=== PATIENT | female | born 1950 | race Caucasian/White ===

== ENCOUNTER → 2017-11-26 | Outpatient (CLI) | payer MEDICARE ==
[~2017-11-26] MED LIST: ASPI-496 PO; ASPI325T17 PO; CYAN1TAB29 PO; DOCU-131 PO; HYDR12.58 PO; LEVO50TA PO; LOSA100T6 PO; LOVA40TA2 PO; SERT50TA5 PO; TRAZ150T62 PO
[2017-11-26 15:00] LABS: BASOPHILS # (AUTO) 0.03 x10^3/uL (0-0.1); BASOPHILS % (AUTO) 0 % (0-1); EOSINOPHILS # (AUTO) 0.03 x10^3/uL (0-0.4); EOSINOPHILS % (AUTO) 0 % (1-7); LYMPHOCYTES # (AUTO) 1.03 x10^3/uL (1-3.4); LYMPHOCYTES % (AUTO) 14 % (22-44); MD NO; MEAN CORPUSCULAR HEMOGLOBIN 30.4 pg (27.0-34.8); MEAN CORPUSCULAR HGB CONC 33.3 g/dL (32.4-35.8); MEAN CORPUSCULAR VOLUME 91.5 fL (80-100); MEAN PLATELET VOLUME 10.2 fL (7.4-10.4); MONOCYTES # (AUTO) 0.59 x10^3/uL (0.2-0.8); MONOCYTES % (AUTO) 8 % (2-9); NEUTROPHILS # (AUTO) 5.78 x10^3/uL (1.8-6.8); NEUTROPHILS % (AUTO) 78 % (42-75); PLATELET COUNT 195 x10^3/uL (130-400); RED BLOOD COUNT 4.46 x10^6/uL (3.82-5.3); RED CELL DISTRIBUTION WIDTH 13.4 % (9.6-15.2)
[2017-11-26 15:12] LABS: MICROSCOPIC AUTO
[2017-11-26 15:13] LABS: ALANINE AMINOTRANSFERASE 19 U/L (12-78); ALBUMIN 3.5 g/dL (3.4-5.0); ANION GAP 7 mmol/L (5-15); CALCIUM 8.8 mg/dL (8.5-10.1); CHLORIDE 103 mmol/L (98-107)
[2017-11-26 15:15] LABS: ALKALINE PHOSPHATASE 78 U/L (45-117); BILIRUBIN,TOTAL 0.4 mg/dL (0.2-1.0); TOTAL PROTEIN 7.5 g/dL (6.4-8.2)
[2017-11-26 15:19] LABS: CULTURE INDICATED? YES
[2017-11-26 15:40] LABS: INTERNATIONAL NORMALIZED RATIO 0.94 (0.93-1.1); PROTHROMBIN TIME 9.8 Seconds (9.6-11.5)
[2017-11-26 15:50] LABS: HEMOGLOBIN A1C 6.4 % (4.2-6.3)
== END | disposition home or self-care (01) ==
LOC: STAR 13:46
PROVIDERS: ATTEND Orthopaedic Surgery
DX: Z01.818 Encounter for other preprocedural examination (principal); M17.12 Unilateral primary osteoarthritis, left knee; R94.31 Abnormal electrocardiogram [ECG] [EKG]; R79.1 Abnormal coagulation profile
CPT/HCPCS: 36415; 80053; 81001; 83036; 85025; 85610; 85730; 87081; 87086; 93005

== ENCOUNTER 2017-12-04 10:56 | Inpatient (IN) | payer MEDICARE ==
[~2017-12-04] VITALS: Ht 157.5 cm; Wt 90.3 kg
[~2017-12-04 10:56] MED LIST changes: +EPINEPHRINE 1 MG/ML, 1ML ONE; +KETOROLAC 60 MG/2 ML ONE; +ROPIvacaine/PF 0.5%, 20 ML ONE; +SODIUM CHLORIDE 0.9% 100 ML ONE; +TRANEXAMIC ACID 100 MG/ML, 10ML ONE
[2017-12-04] MEDS ORDERED: VANCOMYCIN PER PHARMACY MC ONE (11:05)
[2017-12-04 11:19] VITALS: BP 115/78
[2017-12-04] MEDS ORDERED: LACTATED RINGERS 1,000 ML IV SCH (11:27)
[2017-12-04] MEDS ORDERED: GABAPENTIN 300 MG CAPSULE PO ONE (11:30)
[2017-12-04] MEDS ORDERED: ACETAMINOPHEN 500 MG TABLET PO ONE (11:30)
[2017-12-04] MEDS ORDERED: OXYcodone IR 5MG TABLET PO ONE (11:30)
[2017-12-04] MEDS ORDERED: ONDANSETRON ODT 8 MG PO ONE (11:30)
[2017-12-04] MEDS ORDERED: VANCOMYCIN 1,800 MG in SODIUM CHLORIDE 0.9% 250 ML IV ONE (12:00)
[2017-12-04] MEDS ORDERED: EPHEDRINE 50 MG/ML, 1ML IVPush PRN (12:30)
[2017-12-04] MEDS ORDERED: PROMETHAZINE 25 MG/ML, 1ML IV PRN (12:30)
[2017-12-04] MEDS ORDERED: hydrALAzine 20 MG/ML, 1ML IV PRN (12:30)
[2017-12-04] MEDS ORDERED: OXYcodone 5 MG/5 ML ORAL.SOL UDC PO PRN (12:30)
[2017-12-04] MEDS ORDERED: ALBUTEROL SULFATE 2.5 MG/3 ML NPPB PRN (12:30)
[2017-12-04] MEDS ORDERED: HALOPERIDOL 5 MG/ML IV PRN (12:30)
[2017-12-04] MEDS ORDERED: LABETALOL 5MG/ML, 20ML IV PRN (12:30)
[2017-12-04] MEDS ORDERED: METOPROLOL 1 MG/ML, 5ML IV PRN (12:30)
[2017-12-04] MEDS ORDERED: VANCOMYCIN 1,000 MG ONE (12:37)
[2017-12-04] MEDS ORDERED: FENTANYL PF 250 MCG/5ML ONE ×2 (13:31)
[2017-12-04] MEDS ORDERED: GLYCOPYRROLATE 0.2MG/1ML, 5ML ONE (13:37)
[2017-12-04] MEDS ORDERED: ROCURONIUM 10 MG/ML,10ML ONE (13:37)
[2017-12-04] MEDS ORDERED: PROPOFOL 10 MG/ML, 20ML ONE (13:37)
[2017-12-04] MEDS ORDERED: CEFAZOLIN 1,000 MG ONE (13:37)
[2017-12-04] MEDS ORDERED: NEOSTIGMINE 1 MG/ML, 10ML ONE (13:37)
[2017-12-04] MEDS ORDERED: DEXAMETHASONE 4 MG/ML, 5ML ONE (13:37)
[2017-12-04] MEDS ORDERED: MORPHINE SULFATE 4 MG/ML, 1ML ONE (15:17)
[2017-12-04] MEDS ORDERED: FENTANYL PF 100 MCG/2ML ONE (15:17)
[2017-12-04] MEDS ORDERED: OXYcodone 5 MG/5 ML ORAL.SOL UDC ONE (15:17)
[2017-12-04] MEDS: FENTANYL PF 100 MCG/2ML IV PRN ×2 (15:20→15:40)
[2017-12-04] MEDS: MORPHINE SULFATE 4 MG/ML, 1ML IVPush PRN ×2 (15:23→15:29)
[2017-12-04] MEDS ORDERED: BISACODYL 10 MG SUPP PR PRN (15:30)
[2017-12-04] MEDS ORDERED: SENNA/DOCUSATE TABLET PO PRN (15:30)
[2017-12-04] MEDS ORDERED: ACETAMINOPHEN 650 MG/20.3 ML UDC PO PRN (15:30)
[2017-12-04] MEDS ORDERED: DIPHENHYDRAMINE 25 MG CAPSULE PO PRN (15:30)
[2017-12-04] MEDS ORDERED: ZOLPIDEM 5MG TABLET PO PRN (15:30)
[2017-12-04] MEDS ORDERED: HYDROmorphone 2 MG/ML, 1ML IV PRN (15:30)
[2017-12-04] MEDS ORDERED: ONDANSETRON 4 MG TABLET PO PRN (15:30)
[2017-12-04] MEDS ORDERED: OXYcodone IR 5MG TABLET PO PRN (15:30)
[2017-12-04] MEDS ORDERED: MAGNESIUM HYDROXIDE 8%, 30ML UDC PO PRN (15:30)
[2017-12-04] MEDS ORDERED: ONDANSETRON 2MG/ML, 2ML IV PRN (15:30)
[2017-12-04] MEDS ORDERED: SCOPOLAMINE PATCH, 1.5MG PATCH.TD72 TD ONE (17:00)
[2017-12-04] MEDS: ASPIRIN 81 MG TABLET EC PO SCH (17:45)
[2017-12-04] MEDS: NS + 20MEQ KCL 1,000 ML IV SCH (17:45)
[2017-12-04 19:37] VITALS: BP 134/46
[2017-12-04] MEDS ORDERED: LOVASTATIN 40 MG TABLET PO SCH (21:00)
[2017-12-04] MEDS: HYDROcodone/APAP 5/325 TABLET PO PRN (21:05)
[2017-12-04] MEDS: DOCUSATE 100 MG CAPSULE PO SCH (22:27)
[2017-12-04] MEDS: CEFAZOLIN PMX 2GM/50ML 50 ML IVPB SCH (22:27)
[2017-12-04] MEDS ORDERED: TRAZODONE 150MG TABLET PO SCH (23:00)
[2017-12-05 00:14] VITALS: BP 107/52
[2017-12-05] MEDS: HYDROcodone/APAP 5/325 TABLET PO PRN ×3 (01:11→09:35)
[2017-12-05] MEDS ORDERED: MELO7.5T31 PO ×2 (03:42→09:38)
[2017-12-05] MEDS ORDERED: OXYC5TAB2 PO (03:44)
[2017-12-05] MEDS ORDERED: TRAM50TA2 PO ×2 (03:47→09:39)
[2017-12-05] MEDS ORDERED: ONDA4TAB10 PO ×2 (03:48→09:39)
[2017-12-05 04:54] VITALS: BP 118/62
[2017-12-05] MEDS ORDERED: LEVOTHYROXINE 25 MCG TABLET ONE (05:02)
[2017-12-05] MEDS ORDERED: DEXAMETHASONE 4 MG/ML, 1ML IVPush SCH (06:00)
[2017-12-05] MEDS ORDERED: LEVOTHYROXINE 50 MCG TABLET PO SCH (06:00)
[2017-12-05] MEDS: CEFAZOLIN PMX 2GM/50ML 50 ML IVPB SCH (06:07)
[2017-12-05] MEDS: ASPIRIN 81 MG TABLET EC PO SCH (06:07)
[2017-12-05] MEDS: NS + 20MEQ KCL 1,000 ML IV SCH (07:19)
[2017-12-05 07:35] VITALS: BP 127/68
[2017-12-05] MEDS: DOCUSATE 100 MG CAPSULE PO SCH (07:37)
[2017-12-05] MEDS ORDERED: SERTRALINE 50MG TABLET PO SCH (09:00)
[2017-12-05] MEDS ORDERED: TRAZODONE 150MG TABLET PO SCH (09:00)
[2017-12-05] MEDS ORDERED: LOSARTAN 50MG TABLET PO SCH (09:00)
[2017-12-05] MEDS ORDERED: HYDROCHLOROTHIAZIDE 12.5 MG CAPSULE PO SCH (09:00)
[2017-12-05] MEDS ORDERED: OXYC5CAP2 PO (09:39)
[2017-12-05 10:28] VITALS: BP 116/57
== END 2017-12-05 10:50 | disposition home or self-care (01) | DRG 469 ==
LOC: OUT 10:56 → ORIP 15:19 → 4NOR 16:38
PROVIDERS: ADMIT Orthopaedic Surgery; ATTEND Orthopaedic Surgery
PROC: 0SRD0J9 Replacement of Left Knee Joint with Synthetic Substitute, Cemented, Open Approach (ICD-10-PCS; principal; 2017-12-04 14:15)
PROC: 5A09357 Assistance with Respiratory Ventilation, Less than 24 Consecutive Hours, Continuous Positive Airway Pressure (ICD-10-PCS; 2017-12-05)
DX: M17.12 Unilateral primary osteoarthritis, left knee (principal); J96.21 Acute and chronic respiratory failure with hypoxia; E66.9 Obesity, unspecified; G47.33 Obstructive sleep apnea (adult) (pediatric); Z96.652 Presence of left artificial knee joint; I10 Essential (primary) hypertension; Z68.36 Body mass index [BMI] 36.0-36.9, adult; Z91.018 Allergy to other foods
CPT/HCPCS: 36415; 85014; 85018; C1713; J0171; J0690; J1100; J1885; J2704; J2710; J2795; J3010; J3370; J3480; J3490; Q0162; C1776; J7050